=== PATIENT | female | born 1950 | race Caucasian/White ===

== ENCOUNTER → 2022-07-03 | Outpatient (CLI) | payer MEDICARE | END | disposition home or self-care (01) | LOC: RESCLI 14:30 | PROVIDERS: ATTEND Internal Medicine | DX: I11.0 Hypertensive heart disease with heart failure (principal); I50.9 Heart failure, unspecified; D50.9 Iron deficiency anemia, unspecified; J44.9 Chronic obstructive pulmonary disease, unspecified; E78.5 Hyperlipidemia, unspecified; K21.9 Gastro-esophageal reflux disease without esophagitis; I25.10 Atherosclerotic heart disease of native coronary artery without angina pectoris; K44.9 Diaphragmatic hernia without obstruction or gangrene; I34.0 Nonrheumatic mitral (valve) insufficiency; I95.1 Orthostatic hypotension; Z98.890 Other specified postprocedural states; Z82.49 Family history of ischemic heart disease and other diseases of the circulatory system; Z79.82 Long term (current) use of aspirin; Z79.899 Other long term (current) drug therapy ==

== ENCOUNTER → 2023-01-09 | Outpatient (CLI) | payer MEDICARE | END | disposition home or self-care (01) | LOC: RESCLI 00:39 | PROVIDERS: ATTEND Internal Medicine | DX: I11.0 Hypertensive heart disease with heart failure (principal); I50.9 Heart failure, unspecified; D50.9 Iron deficiency anemia, unspecified; E78.5 Hyperlipidemia, unspecified; J44.9 Chronic obstructive pulmonary disease, unspecified; K21.9 Gastro-esophageal reflux disease without esophagitis; I25.10 Atherosclerotic heart disease of native coronary artery without angina pectoris; Z95.5 Presence of coronary angioplasty implant and graft; Z82.49 Family history of ischemic heart disease and other diseases of the circulatory system; Z98.890 Other specified postprocedural states; Z79.899 Other long term (current) drug therapy ==

== ENCOUNTER → 2024-02-25 | Outpatient (CLI) | payer MEDICARE | END | disposition home or self-care (01) | LOC: RESCLI 01:12 | PROVIDERS: ATTEND Internal Medicine | DX: J30.9 Allergic rhinitis, unspecified (principal); E53.8 Deficiency of other specified B group vitamins; C50.919 Malignant neoplasm of unspecified site of unspecified female breast; G89.29 Other chronic pain; J43.9 Emphysema, unspecified; D50.9 Iron deficiency anemia, unspecified; I11.0 Hypertensive heart disease with heart failure; I50.20 Unspecified systolic (congestive) heart failure; I25.10 Atherosclerotic heart disease of native coronary artery without angina pectoris; Z79.899 Other long term (current) drug therapy ==